=== PATIENT | male | born 1985 | race African-American/Black ===

== ENCOUNTER 2017-07-05 20:03 | Emergency (ER) | payer OTHER ==
[~2017-07-05] VITALS: Ht 172.7 cm; Wt 104.3 kg
[2017-07-05 21:17] VITALS: BP 138/76
[2017-07-05] MEDS ORDERED: OMEP20TA8 PO (22:02)
[2017-07-05] MEDS ORDERED: METH-37 PO (22:02)
[2017-07-05] MEDS ORDERED: TRAM-48 PO (22:02)
[2017-07-05] MEDS ORDERED: METH4TAB2 PO (22:02)
--- NOTE | 2017-07-05 22:02 | PHYS DOC ---
Past Medical History Past Medical History: Bronchitis, GERD, Hypertension Additional Past Medical Histor: ETOH Past Surgical History: No Surgical History Alcohol Use: Heavy Drug Use: Marijuana Adult General Chief Complaint Chief Complaint: BACK PAIN - NO INJURY [facility] HPI Patient is a 32 year old male with history of hypertension, bronchitis, acid reflex, who presents with mid and low back pain that began today nonradiating in nature. Patient states the pain began when he sits on the mother's chair. Patient denies any known injury. Denies any loss of bowel bladder function. He states the pain is worse when he sits up. Denies any urinary symptoms. Review of Systems Review of Systems Constitutional: Denies fever or chills [] Eyes: Denies change in visual acuity, redness, or eye pain [] HENT: Denies nasal congestion or sore throat [] Respiratory: Denies cough or shortness of breath [] Cardiovascular: No additional information not addressed in HPI [] GI: Denies abdominal pain, nausea, vomiting, bloody stools or diarrhea [] : Denies dysuria or hematuria [] Musculoskeletal: Mid back and low back pain Integument: Denies rash or skin lesions [] Neurologic: Denies headache, focal weakness or sensory changes [] All other systems were reviewed and found to be within normal limits, except as documented in this note. Allergies Allergies Allergies Coded Allergies Type Severity Reaction Last Updated Verified No Known Drug Allergies 10/11/13 No Physical Exam Physical Exam Constitutional: Well developed, well nourished, no acute distress, non-toxic appearance. [] HENT: Normocephalic, atraumatic, bilateral external ears normal, oropharynx moist, no oral exudates, nose normal. [] Eyes: PERRLA, EOMI, conjunctiva normal, no discharge. [] Neck: Normal range of motion, no tenderness, supple, no stridor. [] Cardiovascular:Heart rate regular rhythm, no murmur [] Lungs & Thorax: Bilateral breath sounds clear to auscultation [] Abdomen: Bowel sounds normal, soft, no tenderness, no masses, no pulsatile masses. [] Skin: Warm, dry, no erythema, no rash. [] Back: Diffuse paraspinal muscle tenderness to thoracic and lumbar spine, no midline tenderness, no CVA tenderness. [] Extremities: No tenderness, no cyanosis, no clubbing, ROM intact, no edema. [] Neurologic: Alert and oriented X 3, normal motor function, normal sensory function, no focal deficits noted. [] Psychologic: Affect normal, judgement normal, mood normal. [] Current Patient Data Vital Signs Vital Signs Date Time Temp Pulse Resp B/P (MAP) Pulse Ox O2 Delivery O2 Flow Rate FiO2 07/05/17 21:17 97.9 67 18 100 Room Air 97.9 EKG EKG [] Radiology/Procedures Radiology/Procedures [] Course & Med Decision Making Course & Med Decision Making Pertinent Labs and Imaging studies reviewed. (See chart for details) Patient is in the ED with mid back and low back pain that began today when he sat down on the mother's chair. There is no known injury. No cauda equina syndrome symptoms. He'll be discharged with Ultram and Robaxin. He was given prescription for omeprazole for his chronic acid reflex. Patient instructed to follow-up with his own PCP in 1-2 weeks. Dragon Disclaimer Dragon Disclaimer This electronic medical record was generated, in whole or in part, using a voice recognition dictation system. Departure Departure Impression: Primary Impression: Low back pain Additional Impression: Thoracic back pain Disposition: HOME, SELF-CARE Condition: STABLE Referrals: MARIA DEL ROSARIO VASQUEZ MD (PCP) Follow-up with the primary care doctor in 1-2 weeks Patient Instructions: Back Exercises, [id number], Back Pain, Adult Additional Instructions: You were seen with mid and low back pain. We put you on medications. Take them as prescribed. Apply heat to the affected areas. Follow up with the PCP in the next 1-2 weeks. Do not lift anything greater than a gallon of milk for 3 days. Scripts Omeprazole (OMEPRAZOLE) 20 Mg Tablet. 1 TAB PO DAILY, #90 TAB 1 Refill Prov: JAZ VILLA [employer] 07/05/17 Methylprednisolone (MEDROL) 4 Mg Tab.ds.pk 1 PKG PO UD, #1 PKG Prov: JAZ VILLA APRN 07/05/17 Tramadol Hcl (ULTRAM) 50 Mg Tablet 1 TAB PO Q6HRS, #30 TAB Prov: MUTUNGAJAZ [employer] 07/05/17 Methocarbamol (ROBAXIN) 500 Mg Tablet 1 TAB PO TID, #30 TAB Prov: MUTUNGAJAZ [employer] 07/05/17 Problem Qualifiers Primary Impression: Low back pain Chronicity: acute Back pain laterality: bilateral Sciatica presence: without sciatica Qualified Codes: M54.5 - Low back pain Additional Impression: Thoracic back pain Chronicity: acute Back pain laterality: bilateral Qualified Codes: M54.6 - Pain in thoracic spine JAZ VILLA APRN Jul 05, 2017 22:02
== END 2017-07-05 22:17 | disposition home or self-care (01) ==
LOC: ER 20:03
DX: M54.5 Low back pain (principal); M54.6 Pain in thoracic spine; K21.9 Gastro-esophageal reflux disease without esophagitis; I10 Essential (primary) hypertension; F10.20 Alcohol dependence, uncomplicated; F12.10 Cannabis abuse, uncomplicated
CPT/HCPCS: 99283

== ENCOUNTER 2017-07-30 00:58 | Emergency (ER) | payer OTHER ==
[2017-07-30] MEDS: DIPHTH,PERTUSS(ACELL),TET TOX 0.5 ML DISP.SYRIN. VAX IM (02:00)
[2017-07-30] MEDS ORDERED: LIDOCAINE/EPI/TETRACAINE TOPICAL GEL 3 ML. TP (02:41)
[2017-07-30] MEDS: LIDOCAINE/EPI/TETRACAINE TOPICAL GEL 3 ML. TP (02:45)
[2017-07-30] MEDS: LIDOCAINE WITH 8.4% SOD BICARB 3 ML DISP.SYRIN. IJ (02:45)
== END 2017-07-30 03:35 | disposition home or self-care (01) ==
LOC: ER 00:58
DX: S01.81XA Laceration without foreign body of other part of head, initial encounter (principal); K21.9 Gastro-esophageal reflux disease without esophagitis; I10 Essential (primary) hypertension; F12.10 Cannabis abuse, uncomplicated; W22.8XXA Striking against or struck by other objects, initial encounter; Y92.89 Other specified places as the place of occurrence of the external cause; Y99.8 Other external cause status; Y93.89 Activity, other specified
CPT/HCPCS: 12011; 70450; 90471; 90715; 99284-25

== ENCOUNTER 2018-05-10 16:22 | Emergency (ER) | payer OTHER ==
[~2018-05-10] VITALS: Ht 172.7 cm; Wt 97.5 kg
[~2018-05-10 16:22] MED LIST: METH-37 PO; METH4TAB2 PO; OMEP20TA8 PO; TRAM-48 PO
[2018-05-10] MEDS ORDERED: NAPROXEN 500 MG TABLET PO STA (16:29)
[2018-05-10] MEDS ORDERED: CYCLOBENZAPRINE 10 MG TABLET. PO ONE (16:30)
[2018-05-10] MEDS ORDERED: HYDROcodone/APAP 5/325MG 1 TAB TABLET PO ONE (16:30)
[2018-05-10 16:33] VITALS: BP 156/94
--- NOTE | 2018-05-10 16:35 | PHYS DOC ---
Past Medical History Past Medical History: Bronchitis, GERD, Hypertension Additional Past Medical Histor: ETOH Past Surgical History: No Surgical History Alcohol Use: Heavy Drug Use: Marijuana Adult General Chief Complaint Chief Complaint: CHEST PAIN-NON CARDIAC NATURE HPI HPI Patient is a 32 year old male with a history of hypertension, acid reflex, bronchitis, who presents today complaining of mild pain to the right upper chest that began today when he was moving items in his house. Patient states he moved a mattress by himself when the pain began. Patient states his pain is worse when he tries to move his right upper extremity around. Patient states immobilization relieves his pain. Patient denies taking anything to relieve his pain. Review of Systems Review of Systems Constitutional: Denies fever or chills [] Eyes: Denies change in visual acuity, redness, or eye pain [] HENT: Denies nasal congestion or sore throat [] Respiratory: Denies cough or shortness of breath [] Cardiovascular: Reports right upper chest pain GI: Denies abdominal pain, nausea, vomiting, bloody stools or diarrhea [] : Denies dysuria or hematuria [] Musculoskeletal: Denies back pain or joint pain [] Integument: Denies rash or skin lesions [] Neurologic: Denies headache, focal weakness or sensory changes [] All other systems were reviewed and found to be within normal limits, except as documented in this note. Current Medications Current Medications Current Medications Medications (Trade) Dose Ordered Sig/Navid Start Time Stop Time Status Last Admin Dose Admin Acetaminophen/ Hydrocodone Bitart (Lortab 5/325) 2 tab 1X ONCE 05/10/18 16:30 05/10/18 16:34 DC 05/10/18 16:45 2 TAB Cyclobenzaprine HCl (Flexeril) 10 mg 1X ONCE 05/10/18 16:30 05/10/18 16:34 DC 05/10/18 16:44 10 MG Naproxen (Naprosyn) 500 mg 1X STAT 05/10/18 16:29 05/10/18 16:34 DC 05/10/18 16:45 500 MG Allergies Allergies Allergies Coded Allergies Type Severity Reaction Last Updated Verified No Known Drug Allergies 10/11/13 No Physical Exam Physical Exam Constitutional: Well developed, well nourished, no acute distress, non-toxic appearance. [] HENT: Normocephalic, atraumatic, bilateral external ears normal, oropharynx moist, no oral exudates, nose normal. [] Eyes: PERRLA, EOMI, conjunctiva normal, no discharge. [] Neck: Normal range of motion, no tenderness, supple, no stridor. [] Cardiovascular:Heart rate regular rhythm, no murmur, reproducible right-sided chest pain on physical exam Lungs & Thorax: Bilateral breath sounds clear to auscultation [] Abdomen: Bowel sounds normal, soft, no tenderness, no masses, no pulsatile masses. [] Skin: Warm, dry, no erythema, no rash. [] Back: No tenderness, no CVA tenderness. [] Extremities: No tenderness, no cyanosis, no clubbing, ROM intact, no edema. [] Neurologic: Alert and oriented X 3, normal motor function, normal sensory function, no focal deficits noted. [] Psychologic: Affect normal, judgement normal, mood normal. [] Current Patient Data Vital Signs Vital Signs Date Time Temp Pulse Resp B/P (MAP) Pulse Ox O2 Delivery O2 Flow Rate FiO2 05/10/18 16:33 98.4 69 18 156/94 (114) 98 Room Air 98.4 EKG EKG 16:[address] Coffey sinus rhythm HR 56 no STEMI[] Radiology/Procedures Radiology/Procedures []PROCEDURE: CHEST AP ONLY Portable chest, 05/10/2018: HISTORY: Chest pain, injury Comparison is made to a study from 05/06/2016. The heart size and pulmonary vascularity are normal. No pulmonary infiltrate is seen. There is no evidence of pleural fluid. IMPRESSION: No acute cardiopulmonary abnormality is detected. Electronically signed by: Raheem Carey MD (05/10/2018 5:04 PM) [facility] DICTATED and SIGNED BY: RAHEEM CAREY MD DATE: 05/10/18 2004 Course & Med Decision Making Course & Med Decision Making Pertinent Labs and Imaging studies reviewed. (See chart for details) This is a 32-year-old male patient presenting to the ED today with musculoskeletal right-sided chest pain that began when he moved a mattress by himself. Chest x-ray and EKG were negative for any acute findings. Discharged with naproxen and Flexeril. Ice elevation encouraged. Follow-up with PCP in 1-2 weeks. Dragon Disclaimer Dragon Disclaimer This electronic medical record was generated, in whole or in part, using a voice recognition dictation system. Departure Departure Impression: Primary Impression: Chest wall muscle strain Disposition: 01 HOME, SELF-CARE Condition: STABLE Referrals: MARIA DEL ROSARIO VASQUEZ MD (PCP) Follow-up with your doctor in 1-2 weeks Patient Instructions: Chest Wall Pain, [id number], Musculoskeletal Pain Additional Instructions: You were evaluated with musculoskeletal pain to the chest. Do not lift anything heavier than a gallon of milk for one week. Apply ice to the affected area. Take the prescribed medications as needed for pain. Scripts Cyclobenzaprine Hcl (CYCLOBENZAPRINE HCL) 10 Mg Tablet 1 TAB PO TID, #30 TAB Prov: JAZ VILLA APRN 05/10/18 Naproxen (NAPROXEN) 500 Mg Tablet.dr 1 TAB PO BID, #20 TAB 0 Refills Prov: JAZ VILLA APRN 05/10/18 Problem Qualifiers Primary Impression: Chest wall muscle strain Encounter type: initial encounter Qualified Codes: S29.011A - Strain of muscle and tendon of front wall of thorax, initial encounter JAZ VILLA APRN May 10, 2018 16:34
--- NOTE | 2018-05-10 17:07 | RAD ---
Portable chest, 05/10/2018: HISTORY: Chest pain, injury Comparison is made to a study from 05/06/2016. The heart size and pulmonary vascularity are normal. No pulmonary infiltrate is seen. There is no evidence of pleural fluid. IMPRESSION: No acute cardiopulmonary abnormality is detected. Electronically signed by: Raheem Carey MD (05/10/2018 5:04 PM) [facility]
[2018-05-10] MEDS ORDERED: CYCL10TA2 PO (17:19)
[2018-05-10] MEDS ORDERED: NAPR500T8 PO (17:19)
--- NOTE | 2018-05-12 15:40 | EKG ---
[facility] [address] [place] [address] Test Date: 2018-05-10 Test Time: 16:47:32 Pat Name: JULIO CÉSAR SMILEY Department: Room: Gender: M [employer]: : 1985 Requested By: JAZ VILLA Order Number: [id number] Reading MD: Hieu De La Rosa MD Measurements Intervals [place] Rate: 55 P: -13 WI: 148 QRS: 34 QRSD: 88 T: 26 QT: 386 QTc: 374 Interpretive Statements SINUS RHYTHM Electronically Signed On 05-13-2018 8:56:37 CDT by Hieu De La Rosa MD
== END 2018-05-10 17:26 | disposition home or self-care (01) ==
LOC: ER 16:22
DX: S29.011A Strain of muscle and tendon of front wall of thorax, initial encounter (principal); K21.9 Gastro-esophageal reflux disease without esophagitis; I10 Essential (primary) hypertension; F10.20 Alcohol dependence, uncomplicated; X50.3XXA Overexertion from repetitive movements, initial encounter; Y93.E6 Activity, residential relocation; Y92.89 Other specified places as the place of occurrence of the external cause; Y99.8 Other external cause status
CPT/HCPCS: 71045; 93005; 99284

== ENCOUNTER 2018-09-24 15:06 | Emergency (ER) | payer OTHER ==
[~2018-09-24] VITALS: Ht 170.2 cm; Wt 97.5 kg
[~2018-09-24 15:06] MED LIST changes: +CYCL10TA2 PO; +NAPR500T8 PO
[2018-09-24 15:22] VITALS: BP 175/81
[2018-09-24] MEDS ORDERED: AMOX500C PO (16:09)
--- NOTE | 2018-09-24 16:10 | PHYS DOC ---
Past Medical History Past Medical History: Bronchitis, GERD, Hypertension Additional Past Medical Histor: ETOH Past Surgical History: No Surgical History Alcohol Use: Heavy Drug Use: Marijuana Adult General Chief Complaint Chief Complaint: FLU SYMPTOM HPI HPI Patient is a 33 year old male who presents with a sore throat that he states is painful to swallow. He is able to handle his own secretions. The patient has been having some chills as well. He denies fever or body aches. Review of Systems Review of Systems Constitutional: Denies fever or chills [] Eyes: Denies change in visual acuity, redness, or eye pain [] HENT: See history of present illness Respiratory: Denies cough or shortness of breath [] Cardiovascular: No additional information not addressed in HPI [] GI: Denies abdominal pain, nausea, vomiting, bloody stools or diarrhea [] : Denies dysuria or hematuria [] Musculoskeletal: Denies back pain or joint pain [] Integument: Denies rash or skin lesions [] Neurologic: Denies headache, focal weakness or sensory changes [] Endocrine: Denies polyuria or polydipsia [] All other systems were reviewed and found to be within normal limits, except as documented in this note. Allergies Allergies Allergies Coded Allergies Type Severity Reaction Last Updated Verified No Known Drug Allergies 10/11/13 No Physical Exam Physical Exam Constitutional: Well developed, well nourished, no acute distress, non-toxic appearance. [] HENT: Normocephalic, atraumatic, bilateral external ears normal, pharyngeal erythema with no oral exudates, nose normal. [] Eyes: PERRLA, EOMI, conjunctiva normal, no discharge. [] Neck: Normal range of motion, positive anterior cervical adenopathy noted, supple, no stridor. [] Cardiovascular:Heart rate regular rhythm, no murmur [] Lungs & Thorax: Bilateral breath sounds clear to auscultation [] Abdomen: Bowel sounds normal, soft, no tenderness, no masses, no pulsatile masses. [] Neurologic: Alert and oriented X 3, normal motor function, normal sensory function, no focal deficits noted. [] Psychologic: Affect normal, judgement normal, mood normal. [] Current Patient Data Vital Signs Vital Signs Date Time Temp Pulse Resp B/P (MAP) Pulse Ox O2 Delivery O2 Flow Rate FiO2 09/24/18 15:22 98.1 102 18 175/81 (112) 98 Room Air 98.1 EKG EKG [] Radiology/Procedures Radiology/Procedures [] Course & Med Decision Making Course & Med Decision Making Pertinent Labs and Imaging studies reviewed. (See chart for details) [] Dragon Disclaimer Dragon Disclaimer This electronic medical record was generated, in whole or in part, using a voice recognition dictation system. Departure Departure Impression: Primary Impression: Pharyngitis Disposition: HOME, SELF-CARE Condition: STABLE Referrals: NO PCP (PCP) Patient Instructions: Viral and Bacterial Pharyngitis Additional Instructions: Take the medication as directed. Follow-up with your primary care provider in 4 days if not improving or return to the emergency department if worsening. You may take ibuprofen or Tylenol for pain or fever. Scripts Amoxicillin (AMOXICILLIN) 500 Mg Capsule 2 CAP PO BID for pharyngitis, #40 CAP Prov: NERY RADFORD APRN 09/24/18 NERY RADFORD APRN Sep 24, 2018 16:10
== END 2018-09-24 16:28 | disposition home or self-care (01) ==
LOC: ER 15:06
DX: J02.9 Acute pharyngitis, unspecified (principal); R59.0 Localized enlarged lymph nodes; K21.9 Gastro-esophageal reflux disease without esophagitis; I10 Essential (primary) hypertension; F10.20 Alcohol dependence, uncomplicated; Y90.9 Presence of alcohol in blood, level not specified
CPT/HCPCS: 99283

== ENCOUNTER 2018-10-13 14:43 | Emergency (ER) | payer OTHER ==
[~2018-10-13] VITALS: Ht 172.7 cm; Wt 97.5 kg
[~2018-10-13 14:43] MED LIST changes: +AMOX500C PO
[2018-10-13] MEDS ORDERED: FLUT9.9S NS (15:33)
[2018-10-13] MEDS ORDERED: METH4TAB2 PO (15:33)
--- NOTE | 2018-10-13 15:33 | PHYS DOC ---
Past Medical History Past Medical History: Bronchitis, GERD, Hypertension Additional Past Medical Histor: ETOH Past Surgical History: No Surgical History Smoking: Cigarettes, Less than 1pk/day Alcohol Use: Heavy Drug Use: None Adult General Chief Complaint Chief Complaint: MULTIPLE COMPLAINTS HPI HPI Patient is a 33 year old AA male who presents to the ER with complaints of chest congestion and frequent throat clearing for the past month and a half. Pt also states that he has had a hard time swallowing large pills and bread recently. He denies any items getting stuck in his throat. Pt was seen here a few weeks ago and prescribed amoxicillin but was unable to complete the medication as prescribed because of his inability to swallow the pills. He denies any fever, cough, runny nose, nausea, vomiting, diarrhea, abdominal pain , ear pain, or sore throat. He denies any pain at this time. Review of Systems Review of Systems Constitutional: Denies fever or chills [] Eyes: Denies changes HENT: See HPI Respiratory: Denies cough or shortness of breath [] Cardiovascular: No additional information not addressed in HPI [] GI: Denies abdominal pain, nausea, vomiting, or diarrhea [] Musculoskeletal: Denies back pain or joint pain [] Integument: Denies rash or skin lesions [] Neurologic: Denies headache Complete systems were reviewed and found to be within normal limits, except as documented in this note. Allergies Allergies Allergies Coded Allergies Type Severity Reaction Last Updated Verified No Known Drug Allergies 10/11/13 No Physical Exam Physical Exam Constitutional: Well developed, well nourished, no acute distress, non-toxic appearance. [] HENT: Normocephalic, atraumatic, bilateral external ears normal, oropharynx moist, cobblestone appearance of posterior pharynx, no TTP of maxillary or frontal sinuses, no oral exudates, nose congested Eyes: conjunctiva normal, no discharge. [] Neck: Normal range of motion, no tenderness, supple, no stridor. [] Cardiovascular:Heart rate regular rhythm, no murmur [] Lungs & Thorax: Bilateral breath sounds clear to auscultation [] Skin: Warm, dry, no erythema, no rash. [] Extremities: No cyanosis, ROM intact Neurologic: Alert and oriented X 3, no focal deficits noted. [] Psychologic: Affect normal, judgement normal, mood normal. [] Current Patient Data Vital Signs Vital Signs Date Time Temp Pulse Resp B/P (MAP) Pulse Ox O2 Delivery O2 Flow Rate FiO2 10/13/18 15:19 98.6 89 18 162/94 (116) 100 Room Air 98.6 EKG EKG [] Radiology/Procedures Radiology/Procedures [] Course & Med Decision Making Course & Med Decision Making Pertinent Labs and Imaging studies reviewed. (See chart for details) [] Dragon Disclaimer Dragon Disclaimer This electronic medical record was generated, in whole or in part, using a voice recognition dictation system. Departure Departure Impression: Primary Impression: GERD (gastroesophageal reflux disease) Additional Impressions: Nasal congestion Post-nasal drainage Disposition: HOME, SELF-CARE Condition: STABLE Referrals: NO PCP (PCP) Patient Instructions: Fluticasone nasal solution, Gastroesophageal Reflux Disease, Adult, [id number] Additional Instructions: Fill the prescriptions and use as directed. Follow up with your primary care doctor for further evaluation and treatment, Return to the ER if symptoms worsen. Scripts Omeprazole (OMEPRAZOLE) 20 Mg Capsule.dr 20 MG PO DAILY for 30 Days, #30 CAP 1 Refill Prov: RASHEED SANTIAGO APRN 10/13/18 Methylprednisolone (MEDROL) 4 Mg Tab.ds.pk 1 PKG PO UD, #1 PKG 0 Refills Prov: RASHEED SANTIAGO APRN 10/13/18 Fluticasone Propionate (Flonase Allergy Relief) 9.9 Ml Holly.susp 2 SPRAYS NS DAILY for 14 Days, #1 BOTTLE 0 Refills Prov: RASHEED SANTIAGO APRN 10/13/18 Problem Qualifiers Primary Impression: GERD (gastroesophageal reflux disease) Esophagitis presence: esophagitis presence not specified Qualified Codes: K21.9 - Gastro-esophageal reflux disease without esophagitis RASHEED SANTIAGO [employer] Oct 13, 2018 15:33
[2018-10-13] MEDS ORDERED: OMEP20CA10 PO (15:36)
[2018-10-13 16:14] VITALS: BP 164/91
== END 2018-10-13 16:17 | disposition home or self-care (01) ==
LOC: ER 14:43
DX: K21.9 Gastro-esophageal reflux disease without esophagitis (principal); R09.81 Nasal congestion; R09.82 Postnasal drip; I10 Essential (primary) hypertension; F17.210 Nicotine dependence, cigarettes, uncomplicated; F10.20 Alcohol dependence, uncomplicated; Y90.9 Presence of alcohol in blood, level not specified
CPT/HCPCS: 99283

== ENCOUNTER 2018-11-13 21:08 | Emergency (ER) | payer OTHER ==
[~2018-11-13] VITALS: Ht 167.6 cm; Wt 97.5 kg
[~2018-11-13 21:08] MED LIST changes: +FLUT9.9S NS; +OMEP20CA10 PO
[2018-11-13 21:28] VITALS: BP 150/96
--- NOTE | 2018-11-13 21:51 | PHYS DOC ---
Past Medical History Past Medical History: Bronchitis, GERD, Hypertension Additional Past Medical Histor: ETOH (FLAKO SALAZAR) Past Surgical History: No Surgical History (FLAKO SALAZAR) Alcohol Use: Heavy Drug Use: None (FLAKO SALAZAR) Adult General Chief Complaint Chief Complaint: LOWER EXT PAIN [facility] HPI Patient is a 33 year old female presents to the ED complaining of left hip pain times one day ago. Patient states that he was standing on top of a fire pit about 2 feet off the ground and he was pulled off and landed on his left hip. Describes the pain as sharp. Rates the pain as 6 out of 10. Patient able to ambulate without assistance. Denies head/neck injury, LOC, vision changes, nausea/vomiting, dizziness, weakness, chest pain or shortness of breath. (FLAKO SALAZAR) Review of Systems Review of Systems Constitutional: Denies fever or chills [] Eyes: Denies change in visual acuity, redness, or eye pain [] HENT: Denies nasal congestion or sore throat [] Respiratory: Denies cough or shortness of breath [] Cardiovascular: No additional information not addressed in HPI [] GI: Denies abdominal pain, nausea, vomiting, bloody stools or diarrhea [] : Denies dysuria or hematuria [] Musculoskeletal: Mild left lateral hip tenderness. Denies back pain. [] Integument: Denies rash or skin lesions [] Neurologic: Denies headache, focal weakness or sensory changes [] All other systems were reviewed and found to be within normal limits, except as documented in this note. (FLAKO SALAZAR) Allergies Allergies Allergies Coded Allergies Type Severity Reaction Last Updated Verified No Known Drug Allergies 10/11/13 No (MUSA KELLY MD) Physical Exam Physical Exam Constitutional: Well developed, well nourished, no acute distress, non-toxic appearance. [] HENT: Normocephalic, atraumatic Neck: Normal range of motion, no tenderness, supple, no stridor. [] Cardiovascular:Heart rate regular rhythm, no murmur [] Lungs & Thorax: Bilateral breath sounds clear to auscultation [] Abdomen: Bowel sounds normal, soft, no tenderness, no masses, no pulsatile masses. [] Skin: Warm, dry, no erythema, no rash. [] Back: No tenderness, no CVA tenderness. [] Extremities: mild left lateral hip tenderness, No overlying skin changes. no cyanosis, no clubbing, ROM intact, no edema. [] Neurologic: Alert and oriented X 3, normal motor function, normal sensory function, no focal deficits noted. [] Psychologic: Affect normal, judgement normal, mood normal. [] (FLAKO SALAZAR) Current Patient Data Vital Signs Vital Signs Date Time Temp Pulse Resp B/P (MAP) Pulse Ox O2 Delivery O2 Flow Rate FiO2 11/13/18 21:28 99.2 88 22 150/96 (114) 100 Room Air 99.2 (MUSA KELLY MD) EKG EKG [] (FLAKO SALAZAR) Radiology/Procedures Radiology/Procedures [] (FLAKO SALAZAR) Course & Med Decision Making Course & Med Decision Making Pertinent Labs and Imaging studies reviewed. (See chart for details) []Imaging read by attending physician. Discussed imaging findings with patient. No acute fracture seen. Patient able to ambulate without assistance. Discussed symptomatic treatment and follow-up with orthopedics if pain persists. Provided contact information/education. Discussed reasons to return to the ED. Patient understands and agrees with plan. (FLAKO SALAZAR) Course & Med Decision Making Staff Physician Addendum: I was working in the ER during the course of this patient's visit. I was available for consultation as needed, but I was not directly involved in the care of this patient. (MUSA KELLY MD) Dragon Disclaimer Dragon Disclaimer This electronic medical record was generated, in whole or in part, using a voice recognition dictation system. (FLAKO SALAZAR) Departure Departure Impression: Primary Impression: Hip pain Disposition: 01 HOME, SELF-CARE Condition: IMPROVED Referrals: NO PCP (PCP) JULIO LOPEZ II, MD Patient Instructions: Hip Pain FLAKO SALAZAR Nov 13, 2018 21:51 MUSA KELLY MD Nov 17, 2018 20:29
--- NOTE | 2018-11-14 08:34 | RAD ---
HIP LEFT 2V WITH PELVIS History: Left hip pain, injury Comparison: None. Findings: AP view of the pelvis and 2 additional views of the left hip are submitted. No acute fracture or dislocation is identified by radiographs. Calcification in the right pelvis may be a larger phlebolith. There is osteophyte formation associated with the superior left acetabulum. Impression: 1. No acute osseous abnormality is identified. Electronically signed by: Maury Schwarz MD (11/14/2018 8:31 AM) [id number]
== END 2018-11-13 22:37 | disposition home or self-care (01) ==
LOC: ER 21:08
DX: M25.552 Pain in left hip (principal); G89.11 Acute pain due to trauma; K21.9 Gastro-esophageal reflux disease without esophagitis; I10 Essential (primary) hypertension; F10.20 Alcohol dependence, uncomplicated; Y90.9 Presence of alcohol in blood, level not specified; W17.89XA Other fall from one level to another, initial encounter; Y93.89 Activity, other specified; Y92.89 Other specified places as the place of occurrence of the external cause; Y99.8 Other external cause status
CPT/HCPCS: 73502; 99284

== ENCOUNTER 2019-09-19 00:08 | Emergency (ER) | payer OTHER ==
[~2019-09-19] VITALS: Ht 170.2 cm; Wt 85.0 kg
[~2019-09-19 00:08] MED LIST changes: -OMEP20CA10 PO; +OMEP20CA16 PO
[2019-09-19] MEDS ORDERED: FLUORESCEIN OPHTH TEST STRIP. ONE (00:32)
[2019-09-19] MEDS ORDERED: TETRACAINE 0.5% OPHTH SOLUTION 4ML BOTTLE. ONE (00:32)
[2019-09-19] MEDS ORDERED: FLUORESCEIN OPHTH TEST STRIP. OD ONE (00:45)
[2019-09-19] MEDS ORDERED: TETRACAINE 0.5% OPHTH SOLUTION 4ML BOTTLE. OD ONE (00:45)
--- NOTE | 2019-09-19 00:51 | PHYS DOC ---
Past Medical History Past Medical History: Bronchitis, GERD, Hypertension Additional Past Medical Histor: ETOH Past Surgical History: No Surgical History Smoking Status: Current Every Day Smoker Alcohol Use: Heavy Drug Use: None Adult General Chief Complaint Chief Complaint: EYE PROBLEMS HPI HPI 34 female presents to the emergency department with complaints of right eye abn ormality. Patient has underlying history of hypertension, states he was blowing his nose felt swelling around his right eye. Denies any visual change. States his eyes became puffy after blowing his nose. Patient is able to move his eye with evidence of extraocular muscles intact. He denies any pain on examination. Patient has a headache, visual change, chest pain, shortness of breath, nausea or vomiting. Nothing makes his symptoms worse, nothing makes his symptoms better. All other ROS negative unless documented in HPI Review of Systems Review of Systems See Above Current Medications Current Medications Current Medications Medications (Trade) Dose Ordered Sig/Navid Start Time Stop Time Status Last Admin Dose Admin Fluorescein Sodium (Ful-Beatrice) 1 strip 1X ONCE 09/19/19 00:45 09/19/19 00:46 DC 09/19/19 00:45 1 STRIP Tetracaine HCl (Tetracaine) 1 drop 1X ONCE 09/19/19 00:45 09/19/19 00:46 DC 09/19/19 00:45 1 DROP Allergies Allergies Allergies Coded Allergies Type Severity Reaction Last Updated Verified No Known Drug Allergies 10/11/13 No Physical Exam Physical Exam See Above Constitutional: Well developed, well nourished, no acute distress, non-toxic appearance. [] HENT: Normocephalic, atraumatic, bilateral external ears normal, oropharynx moist, no oral exudates, nose normal. [] Eyes: PERRLA, EOMI - no evidence of intrapment, conjunctiva normal, no discharge, right periorbital swelling [] Neck: Normal range of motion, no tenderness, supple, no stridor. [] Cardiovascular:Heart rate regular rhythm, no murmur [] Lungs & Thorax: Bilateral breath sounds clear to auscultation [] Abdomen: Bowel sounds normal, soft, no tenderness, no masses, no pulsatile masses. [] Skin: Warm, dry, no erythema, no rash. [] Neurologic: Alert and oriented X 3, no focal deficits noted. [] Psychologic: Affect normal, judgement normal, mood normal. [] Eyes exam with tetracaine, fluorescein reveals no evidence of Tj sign Current Patient Data Vital Signs Vital Signs Date Time Temp Pulse Resp B/P (MAP) Pulse Ox O2 Delivery O2 Flow Rate FiO2 09/19/19 00:15 98.2 113 18 175/104 (127) 98 Room Air 98.2 Lab Values Laboratory Tests Test 09/19/19 00:52 White Blood Count 6.7 x10^3/uL (4.0-11.0) Red Blood Count 4.51 x10^6/uL (4.30-5.70) Hemoglobin 16.0 g/dL (13.0-17.5) Hematocrit 46.1 % (39.0-53.0) Mean Corpuscular Volume 102 fL (79-100) H Mean Corpuscular Hemoglobin 35 pg (25-35) Mean Corpuscular Hemoglobin Concent 35 g/dL (31-37) Red Cell Distribution Width 14.9 % (11.5-14.5) H Platelet Count 289 x10^3/uL (140-400) Neutrophils (%) (Auto) 49 % (31-73) Lymphocytes (%) (Auto) 37 % (24-48) Monocytes (%) (Auto) 11 % (0-9) H Eosinophils (%) (Auto) 1 % (0-3) Basophils (%) (Auto) 1 % (0-3) Neutrophils # (Auto) 3.3 x10^3/uL (1.8-7.7) Lymphocytes # (Auto) 2.5 x10^3/uL (1.0-4.8) Monocytes # (Auto) 0.8 x10^3/uL (0.0-1.1) Eosinophils # (Auto) 0.0 x10^3/uL (0.0-0.7) Basophils # (Auto) 0.1 x10^3/uL (0.0-0.2) Sodium Level 135 mmol/L (136-145) L Potassium Level 3.3 mmol/L (3.5-5.1) L Chloride Level 99 mmol/L (98-107) Carbon Dioxide Level 23 mmol/L (21-32) Anion Gap 13 (6-14) Blood Urea Nitrogen 6 mg/dL (8-26) L Creatinine 1.0 mg/dL (0.7-1.3) Estimated GFR (Cockcroft-Gault) 102.3 BUN/Creatinine Ratio 6 (6-20) Glucose Level 114 mg/dL (70-99) H Calcium Level 9.0 mg/dL (8.5-10.1) Total Bilirubin 0.3 mg/dL (0.2-1.0) Aspartate Amino Transferase (AST) 120 U/L (15-37) H Alanine Aminotransferase (ALT) 172 U/L (16-63) H Alkaline Phosphatase 87 U/L (46-116) Total Protein 8.7 g/dL (6.4-8.2) H Albumin 3.9 g/dL (3.4-5.0) Albumin/Globulin Ratio 0.8 (1.0-1.7) L Laboratory Tests 09/19/19 00:52 Laboratory Tests 09/19/19 00:52 EKG EKG [] Radiology/Procedures Radiology/Procedures [facility] [address] [place] [address] IMAGING REPORT Signed PATIENT: JULIO CÉSAR SMILEY ACCOUNT: [id number] : 1985 LOCATION: ER AGE: 34 SEX: M EXAM STATUS: REG ER ORD. PHYSICIAN: LORETA SEVERINO MD REASON: blew nose, right periorbital edema appreciated, rule out blow out PROCEDURE: CT MAXILLOFACIAL WO CONTRAST INDICATION: Right orbital pain COMPARISON: CT head July 30, 2017 TECHNIQUE: Axial CT images obtained through the face. One or more of the following individualized dose reduction techniques were utilized for this examination: 1. Automated exposure control; 2. Adjustment of the mA and/or kV according to patient size; 3. Use of iterative reconstruction technique. FINDINGS: Posterior and anterior fusion defects C1. Odontogenic disease with periapical lucency at the left posterior most mandibular molar which could be from odontogenic cyst or periapical abscess. There is a displaced fracture of the right inferior orbital wall with fracture fragment displaced into the right maxillary sinus. The fracture measures up to 13 mm in lateral dimension and 15 mm anterior to posterior. There is both intraconal and extraconal air as well as air within the adjacent soft tissues. IMPRESSION: * Displaced right inferior orbital wall fracture with air seen within the retro-orbital as well as preseptal region. Electronically signed by: Carter Siddiqi MD (09/19/2019 1:27 AM) [id number] DICTATED and SIGNED BY: CARTER SIDDIQI MD DATE: 09/19/19 0127 [] Course & Med Decision Making Course & Med Decision Making Pertinent Labs and Imaging studies reviewed. (See chart for details) []34 female presents to the emergency department with complaints of right eye abnormality. Patient has underlying history of hypertension, states he was blowing his nose felt swelling around his right eye. Denies any visual change. States his eyes became puffy after blowing his nose. Patient is able to move his eye with evidence of extraocular muscles intact. He denies any pain on examination. Patient has a headache, visual change, chest pain, shortness of breath, nausea or vomiting. Nothing makes his symptoms worse, nothing makes his symptoms better. Labs reviewed, potassium 3.3, AST, ALT elevated CBC within normal limits. CT reveals evidence of displaced inferior orbital wall fracture of the right eye The medical transfer center contacted [phone], return call [phone] [facility] transfer return call [phone] after consult for ophthalmology, recommend follow- up as an outpatient tomorrow [facility] clinic #[phone] or [phone] Luis Antonio Disclaimer [facility] Disclaimer This electronic medical record was generated, in whole or in part, using a voice recognition dictation system. Departure Departure Impression: Primary Impression: Fracture of inferior orbital wall Additional Impression: Hypokalemia Disposition: 01 HOME, SELF-CARE Condition: STABLE Referrals: NO PCP (PCP) Patient Instructions: Orbital Floor Fracture, Blowout Additional Instructions: Recommend follow up with [facility] in AM Call [phone] or [phone] CT with evidence of inferior orbital wall fracture, displaced Return to the ER with evidence of abnormal eye movement, inability to see out of right eye Problem Qualifiers Primary Impression: Fracture of inferior orbital wall Encounter type: initial encounter Fracture type: closed Laterality: right Qualified Codes: S02.31XA - Fracture of orbital floor, right side, initial encounter for closed fracture LORETA SEVERINO MD Sep 19, 2019 00:51
[2019-09-19 01:00] LABS: BASO # 0.1 x10^3/uL (0.0-0.2); BASO % 1 % (0-3); EOS % 1 % (0-3); HEMATOCRIT 46.1 % (39.0-53.0); LYMPH # 2.5 x10^3/uL (1.0-4.8); LYMPH % 37 % (24-48); MEAN CORPUSCULAR HEMOGLOBIN 35 pg (25-35); MEAN CORPUSCULAR HGB CONC 35 g/dL (31-37); MEAN CORPUSCULAR VOLUME 102 fL (79-100); MONO # 0.8 x10^3/uL (0.0-1.1); MONO % 11 % (0-9); NEUT # 3.3 x10^3/uL (1.8-7.7); NEUT % 49 % (31-73); PLATELET COUNT 289 x10^3/uL (140-400); RED BLOOD COUNT 4.51 x10^6/uL (4.30-5.70); RED CELL DISTRIBUTION WIDTH 14.9 % (11.5-14.5); WHITE BLOOD COUNT 6.7 x10^3/uL (4.0-11.0)
[2019-09-19 01:09] LABS: GFR 102.3; POTASSIUM 3.3 mmol/L (3.5-5.1)
[2019-09-19 01:15] LABS: ALBUMIN 3.9 g/dL (3.4-5.0); ALBUMIN/GLOBULIN RATIO 0.8 (1.0-1.7); TOTAL BILIRUBIN 0.3 mg/dL (0.2-1.0); TOTAL PROTEIN 8.7 g/dL (6.4-8.2)
--- NOTE | 2019-09-19 01:30 | RAD ---
INDICATION: Right orbital pain COMPARISON: CT head July 30, 2017 TECHNIQUE: Axial CT images obtained through the face. One or more of the following individualized dose reduction techniques were utilized for this examination: 1. Automated exposure control; 2. Adjustment of the mA and/or kV according to patient size; 3. Use of iterative reconstruction technique. FINDINGS: Posterior and anterior fusion defects C1. Odontogenic disease with periapical lucency at the left posterior most mandibular molar which could be from odontogenic cyst or periapical abscess. There is a displaced fracture of the right inferior orbital wall with fracture fragment displaced into the right maxillary sinus. The fracture measures up to 13 mm in lateral dimension and 15 mm anterior to posterior. There is both intraconal and extraconal air as well as air within the adjacent soft tissues. IMPRESSION: * Displaced right inferior orbital wall fracture with air seen within the retro-orbital as well as preseptal region. Electronically signed by: Carter Siddiqi MD (09/19/2019 1:27 AM) [id number]
[2019-09-19 02:33] VITALS: BP 160/80
[2019-09-19] MEDS ORDERED: POTASSIUM CHLORIDE 20 MEQ TABLET.ER. PO ONE (03:30)
== END 2019-09-19 03:40 | disposition home or self-care (01) ==
LOC: ER 00:08
DX: S02.31XA Fracture of orbital floor, right side, initial encounter for closed fracture (principal); E87.6 Hypokalemia; K21.9 Gastro-esophageal reflux disease without esophagitis; I10 Essential (primary) hypertension; F17.200 Nicotine dependence, unspecified, uncomplicated; F10.20 Alcohol dependence, uncomplicated; Y90.9 Presence of alcohol in blood, level not specified; X58.XXXA Exposure to other specified factors, initial encounter; Y93.89 Activity, other specified; Y92.89 Other specified places as the place of occurrence of the external cause; Y99.8 Other external cause status
CPT/HCPCS: 36415; 70486; 80053; 85025; 99284-25